=== PATIENT | female | born 1960 | race Caucasian/White ===

== ENCOUNTER 2023-06-05 09:30 | Outpatient (AMB) | payer OTHER, SELFPAY ==
--- NOTE | 2023-06-05 10:00 | AM.OFFWIN_ITS ---
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 Lower back pain/LT arm Pain/LT hand concerns Intake Note: pt is here for lower back pain and goes down to leg, possible sciatica Patient Tobacco Use Status: Former Tobacco user Allergies latex [LATEX] Allergy (Severe, Verified 06/05/23 10:08) HIVES Sulfa (Sulfonamide Antibiotics) [SULFA (SULFONAMIDE ANTIBIOTICS)] Allergy (Severe, Verified 06/05/23 10:08) SWELLING AND HIVES Latex Gloves Allergy (Mild, Uncoded 06/05/23 10:08) Unknown Do you need a note to return to daycare/school/sports/work: Yes HPI HPI Comments History of Present Illness Details 63-year-old female presents with back pa in radiating down the left hip. In addition she endorses pain in the left ring finger. The right ring finger be comes locked in place with its flexed. Denies any fevers chills has a history of sciatica. PFSH Social History Patient Tobacco Use Status: Former Tobacco user Physical Exam Vital Signs: Last Vital Signs Temp 97.9 F 06/05/23 10:06 Pulse 73 06/05/23 10:06 BP 142/80 H 06/05/23 10:06 Pulse Ox 98 06/05/23 10:06 Oxygen Delivery Method Room Air 06/05/23 10:06 BMI result Body Mass Index 33.2 Const General: cooperative, healthy appearing, no acute distress and alert Orientation/consciousness: patient oriented x3 Limitations: no limitations HEENT Head: Yes normal to inspection Ears: hearing grossly normal bilaterally General nose exam: Normal external nose present Resp Effort & Inspection: normal respiratory effort and able to speak in complete sentences Cardio Rate: regular rate Skin General skin exam: no rashes or lesions noted Neuro General: patient oriented x3 Extrem Other: Left ring finger locked in place with flexion. General: Yes normal to inspection Assessment & Plan Assessment & Plan (1) Sciatic leg pain: Code(s): M54.30 - Sciatica, unspecified side Plan: Patient's sons symptoms consistent with sciatic like nerve pain will prescribe anti-inflammatories well as muscle relaxer and lidocaine patches. Patient called back requesting a different pain medication. Patient states that she has never been flagged to or at does not have any substance abuse in her history. I have explained to her that there is no data to suggest that opiates are useful in back pain in fact that they are more harmful than good in the use of musculoskeletal back pain. She is adamant about not taking the anti- inflammatory meloxicam and she says she rated causes cancer in stroke and heart disease. Offered to prescribe her a different muscle relaxer as well as a steroid or Medrol Dosepak. She states that she will let me figure it out. (2) Trigger finger: Code(s): M65.30 - Trigger finger, unspecified finger Qualifiers: Laterality: left Trigger finger location: ring finger Qualified Code(s): M65.342 - Trigger finger, left ring finger Plan: Patient exam findings consistent with trigger finger anti-inflammatory prescribed for sciatica recommend conservative treatment at this time. Medications: New meloxicam 7.5 mg PO DAILY 10 tabs 0RF lidocaine 5% leave on most painful area for up to 12 hrs 1 patch topical DAILY 30 ea 0RF methylprednisolone (Medrol (Jared)) PO PER PKG DIR for 6 days 21 ea 0RF cyclobenzaprine 5 mg PO BEDTIME PRN 7 tabs 0RF muscle spasm Coding Level of Care Code New Pt Level 3 (29639) Diagnoses Sciatic leg pain M54.30 Trigger ring finger of left hand M65.342 Laterality: left Trigger finger location: ring finger
[2023-06-05 10:06] VITALS: BP 142/80; PULSE 73; TEMP 36.6; O2SAT 98; BMI 33.2
== END 2023-06-05 10:41 | disposition home or self-care (01) ==
PROVIDERS: Visit Provider Physician Assistant
DX: M54.30 Sciatica, unspecified side (principal); M65.342 Trigger finger, left ring finger
CPT/HCPCS: 99051; 99203

== ENCOUNTER 2023-10-23 09:08 | Outpatient (AMB) | payer OTHER, SELFPAY ==
[2023-10-23 09:14] VITALS: BP 124/80; PULSE 72; O2SAT 98; BMI 33.2
--- NOTE | 2023-10-23 09:14 | MHC.OFFWIV ---
Intake Vital Signs 10/23/23 09:14 Height 5 ft Weight 170 lb BMI 33.2 BP 124/80 Blood Pressure Location Lt brachial Position Sitting Pulse 72 Pulse Source Pulse Oximeter Pulse Oximetry (%) 98 Oxygen Delivery Method Room Air Intake Visit Reasons: EP RT Arm pain/numbness Intake Note: Pt is here today Rt shoulder pain down to Rt arm over a year: no injury noted Patient Tobacco Use Status: Former Tobacco user Allergies latex [LATEX] Allergy (Severe, Verified 10/23/23 09:26) HIVES Sulfa (Sulfonamide Antibiotics) [SULFA (SULFONAMIDE ANTIBIOTICS)] Allergy (Severe, Verified 10/23/23 09:26) SWELLING AND HIVES Latex Gloves Allergy (Mild, Uncoded 10/23/23 09:26) Unknown HPI EP RT Arm pain/numbness HPI Details Patient is a 63-year-old female comes the walk-in clinic complaining of worsening of her chronic right arm pain with tingling that has been bothering her for over a year now, especially with use of the right arm. She states that symptoms had started with trigger finger discomfort, and then she started to notice some pain to the right wrist, which now radiates up the right arm, and causes a tingling sensation. She denies acute trauma, obvious repetitive injury, swelling, fever or chills, weakness, color change, any chest wall discomfort, or other significant associated symptoms. [facility] Social History Patient Tobacco Use Status: Former Tobacco user Review of Systems Const All systems reviewed & are unremarkable except as noted in HPI and below Physical Exam Vital Signs: Last Vital Signs Pulse 72 10/23/23 09:14 BP 124/80 10/23/23 09:14 Pulse Ox 98 10/23/23 09:14 Oxygen Delivery Method Room Air 10/23/23 09:14 BMI result Body Mass Index 33.2 Neck Neck: Yes full ROM Back/Spine/Pelvis Cervical Spine: normal cervical lordosis, cervical ROM normal, No cervical muscular tenderness, No pain with cervical ROM, No cervical spasm and No Cervical spine tenderness Extrem Other: Tenderness to palpation to the right trapezius area, as well as pretty diffusely to the right deltoid and biceps, right brachioradialis and right wrist. No obvious swelling, deformity, and she has full range of motion to the shoulder joint as well as the elbow and wrist. Good director financial planning strength. Negative Sam. Neurovascularly intact distally Assessment & Plan Assessment & Plan (1) Muscle spasm: Code(s): M62.838 - Other muscle spasm Plan: Patient is a 63-year-old female comes to the walk-in clinic with symptoms consistent with muscle spasm to the right shoulder and arm. I think she is having a trapezius spasm, possibly due to compensating with her right shoulder for having a longstanding issue to her right hand, which she describes as trigger finger issues. She might also be experiencing radicular pain from her neck, however there were no specific findings on C-spine exam. Her issue has been ongoing for almost a year now, and we discussed that she should follow up with PCP or orthopedist at this point. She is taking [id number] anti-inflammatories, however think she would benefit from a trial muscle relaxer, which I wrote for today, for some relief in the meantime. We also discussed heating and stretching to the right shoulder area. Medications: New cyclobenzaprine 10 mg PO TID PRN 14 tabs 0RF muscle spasm Coding Level of Care Code Est Pt Level 4 (82035) Diagnoses Muscle spasm M62.838
== END 2023-10-23 10:21 | disposition home or self-care (01) ==
PROVIDERS: Visit Provider Physician Assistant Medical
DX: M62.838 Other muscle spasm (principal)
CPT/HCPCS: 99051; 99214